=== PATIENT | female | born 1960 | race Caucasian/White ===

== ENCOUNTER 2017-05-26 18:29 | Emergency (ER) | payer MEDICAID ==
[~2017-05-26] VITALS: Ht 160 cm; Wt 90.7 kg
[2017-05-26 21:50] VITALS: BP 119/44
== END 2017-05-26 21:50 | disposition home or self-care (01) ==
LOC: ED 18:29
DX: R11.10 Vomiting, unspecified (principal); R19.7 Diarrhea, unspecified; R10.9 Unspecified abdominal pain; E11.9 Type 2 diabetes mellitus without complications; Z79.84 Long term (current) use of oral hypoglycemic drugs; E78.00 Pure hypercholesterolemia, unspecified
CPT/HCPCS: J1885; J3010; Q0162